=== PATIENT | female | born 1955 | race Hispanic/Latino ===

== ENCOUNTER 2017-11-26 05:49 | Emergency (ER) | payer BC, OTHER ==
[2017-11-26] MEDS ORDERED: HYDROcodone/Acetaminophen 5/325 mg Tablet ONE ×2 (06:13→06:51)
[2017-11-26] MEDS ORDERED: Ketorolac Tromethamine 60 MG/2 ML VIAL ONE (06:14)
--- NOTE | 2017-12-01 16:09 | EKG ---
Test Reason : Blood Pressure : / mmHG Vent. Rate : 074 BPM Atrial Rate : 074 BPM P-R Int : 150 ms QRS Dur : 088 ms QT Int : 400 ms P-R-T Axes : 039 -22 023 degrees QTc Int : 444 ms Normal sinus rhythm Cannot rule out Anterior infarct , age undetermined No STEMI Abnormal ECG Confirmed by ANA Urbano, JEREMIE ([id number]), food editor MARCELLE QUINTERO ([id number]) on 12/01/2017 4:09:11 PM Referred By: Confirmed By:JEREMIE PEREZ M.D.
== END 2017-11-26 06:55 | disposition home or self-care (01) ==
LOC: ERS 05:49
DX: H66.92 Otitis media, unspecified, left ear (principal); I10 Essential (primary) hypertension; F17.210 Nicotine dependence, cigarettes, uncomplicated; Z71.6 Tobacco abuse counseling
CPT/HCPCS: 93005; 96372; 99406; J1885

== ENCOUNTER 2017-12-25 16:08 | Outpatient (CLI) | payer BC | END 2017-12-25 16:09 | disposition home or self-care (01) | LOC: BICMAMMO 16:08 | PROVIDERS: ATTEND Family Medicine | DX: Z12.31 Encounter for screening mammogram for malignant neoplasm of breast (principal) | CPT/HCPCS: 77063; 77067 ==

== ENCOUNTER 2020-02-26 08:10 | Emergency (ER) | payer BC, OTHER ==
[2020-02-26] MEDS ORDERED: Ibuprofen 200 MG TAB ONE (08:50)
== END 2020-02-26 09:23 | disposition home or self-care (01) ==
LOC: ERS 08:10
DX: U07.1 COVID-19 (principal)
CPT/HCPCS: 99284

== ENCOUNTER 2020-02-28 04:00 | Emergency (ER) | payer BC, OTHER ==
[2020-02-28] MEDS ORDERED: Ibuprofen 800 MG TAB ONE (04:12)
[2020-02-28] MEDS ORDERED: Ondansetron ODT 8 MG TAB ONE (04:12)
--- NOTE | 2020-02-28 08:15 | RAD ---
PORTABLE CHEST 1 VIEW: Date: 02/28/2020 Time: 0351 hours HISTORY: Fever. Back pain. Vomiting. COVID-positive 6 days ago. COMPARISON: None. FINDINGS: The heart size is normal. The lungs are expanded without focal areas of consolidation, pneumothoraces , or pleural effusions. IMPRESSION: No acute process. POS: CECILIO
== END 2020-02-28 04:50 | disposition home or self-care (01) ==
LOC: ERS 04:00
DX: U07.1 COVID-19 (principal); R50.9 Fever, unspecified; E11.9 Type 2 diabetes mellitus without complications; Z87.891 Personal history of nicotine dependence
CPT/HCPCS: 36416; 71045; Q0162

== ENCOUNTER 2020-03-16 13:34 | Outpatient (CLI) | payer BC ==
--- NOTE | 2020-03-16 14:15 | BD ---
DEXA BONE DENSITOMETRY: (Dual energy x-ray absorptiometry) DATE: 03/16/2020 HISTORY: 64-year old female for age-related, post-menopausal, osteoporosis screening. weight: 151 lbs height: 62 in. Age of menopause: 44 COMPARISON: None available. FINDINGS: The bone mineral density (BMD) is given in grams per square centimeter (g/cm2): LUMBAR SPINE: BMD (g/cm^2) T score Z score L1: 0.724 -2.4 -0.8 L2: 0.802 -2.1 -0.3 L3: 0.731 -3.2 -1.4 L4: 0.723 -3.1 -1.2 Total: 0.743 -2.8 -1.0 HIP: BMD (g/cm^2) T score Z score Femoral neck: 0.652 -1.8 -0.4 Total: 0.878 -0.5 0.5 IMPRESSION: 1.) The mean bone mineral density of the lumbar spine is osteoporotic. Fracture risk is high. 2) The bone mineral density of the femoral neck is osteopenic. Fracture risk is increased.
--- NOTE | 2020-03-16 15:02 | MMO ---
Bilateral MAMMO Bilat Screen [facility]. CLINICAL HISTORY: Patient is 64 years old and is seen for screening. The patient has no family history of breast cancer. The patient has no personal history of cancer. VIEWS: The views performed were: bilateral craniocaudal with tomosynthesis and bilateral mediolateral oblique with tomosynthesis. FILMS COMPARED: The present examination has been compared to a prior imaging study performed at [facility] on 12/25/2017. This study has been interpreted with the assistance of computer-aided detection. MAMMOGRAM FINDINGS: The breasts are almost entirely fat. There are no suspicious masses, suspicious calcifications, or new areas of architectural distortion. IMPRESSION: THERE IS NO MAMMOGRAPHIC EVIDENCE OF MALIGNANCY. A ROUTINE FOLLOW-UP MAMMOGRAM IN 1 YEAR IS RECOMMENDED. THE RESULTS OF THIS EXAM WERE SENT TO THE PATIENT. ACR BI-RADS Category 1 - Negative MAMMOGRAPHY NOTE: 1. A negative mammogram report should not delay a biopsy if a dominant of clinically suspicious mass is present. 2. Approximately 10% to 15% of breast cancers are not detected by mammography. 3. Adenosis and dense breasts may obscure an underlying neoplasm. Reported by: KEILY HARVEY MD Electonically Signed: [id number]
== END 2020-03-16 13:35 | disposition home or self-care (01) ==
LOC: BICMAMMO 13:34
PROVIDERS: ATTEND Family Medicine
DX: Z12.31 Encounter for screening mammogram for malignant neoplasm of breast (principal); Z13.820 Encounter for screening for osteoporosis; Z78.0 Asymptomatic menopausal state; M81.0 Age-related osteoporosis without current pathological fracture; M85.859 Other specified disorders of bone density and structure, unspecified thigh
CPT/HCPCS: 77063; 77067; 77080

== ENCOUNTER 2020-06-21 07:39 | Outpatient (CLI) | payer BC, MEDICARE, OTHER ==
[2020-06-21 12:20] LABS: Hemoglobin 12.4 g/dL (12.0-16.0); Mean Corpuscular HGB CONC 33.1 G/DL (32.0-36.0); Mean Corpuscular Hemoglobin 30.6 PG (27.0-33.0); Mean Corpuscular Volume 92.6 fl (80.0-100.0); Platelet Count 195 10x3/uL (130-400); RBC Distribution Width 12.4 % (11.5-14.5); Red Blood Cell (RBC) Count 4.05 10x6/uL (3.90-5.20); White Blood Cell (WBC) Count 5.5 10x3/uL (4.5-11.0)
[2020-06-21 20:25] LABS: SARS-CoV-2 MS2 Positive; SARS-CoV-2 N Gene Negative; SARS-CoV-2 S Gene Negative; SARS-CoV-2 by NAA Not Detected (NotDetected); SARS-CoV-2 orf1ab Negative
== END 2020-06-21 07:40 | disposition home or self-care (01) ==
LOC: LABBT 07:39
PROVIDERS: ATTEND Obstetrics & Gynecology
DX: Z01.818 Encounter for other preprocedural examination (principal); Z20.828 Contact with and (suspected) exposure to other viral communicable diseases; N81.9 Female genital prolapse, unspecified
CPT/HCPCS: 85027; 86850; 86900; 86901; 87635; U0003

== ENCOUNTER 2020-06-26 06:08 | Day surgery (SDC) | payer BC, MEDICARE ==
--- NOTE | 2020-06-22 10:42 | HP ---
HISTORY OF PRESENT ILLNESS: Ms. Danielle Schwartz is a 64-year-old female, G5, P5, who is noted to have significant pelvic prolapse with total procidentia. She has been given a pessary trial with several different pessaries, which caused her pain despite different modifications. She is uncomfortable with the prolapse and is desiring surgical repair. PAST MEDICAL HISTORY: 1. Diabetes. 2. Hypertension. 3. Osteoporosis. PAST SURGICAL HISTORY: Tubal ligation. ALLERGIES: SHE HAS NO KNOWN DRUG ALLERGIES. CURRENT MEDICATIONS: 1. Atorvastatin 40 mg tablet daily. 2. Ibandronate 150 mg tablet monthly for osteoporosis. 3. Lisinopril 5 mg tablet daily. 4. Metformin 500 mg extended release tablet 2 tablets at bedtime. 5. She does [employer] insulin sliding scale. SOCIAL HISTORY: Nonsmoker. FAMILY HISTORY: Noncontributory. OBSTETRICAL HISTORY: Five vaginal deliveries. PRIMARY CARE PHYSICIAN: Dr. Zuniga. PHYSICAL EXAMINATION: VITAL SIGNS: Her height is 5 feet 1 inch, weight 153, BMI of 28.9, blood pressure 124/76, pulse 82, O2 saturation on room air 96%, and respiratory rate 18. HEENT: Within normal limits. CHEST: Clear to auscultation. HEART: Regular rate and rhythm. S1 and S2 heart sounds. No murmurs, rubs, or gallops. ABDOMEN: Soft, nontender, and nondistended. No palpable masses. PELVIC: No vulvar lesions noted. No vaginal lesions noted. She does have atrophic mucosa. She has total procidentia of the cervix coming past the opening of the vaginal introitus. Adnexa were nontender with no masses. ASSESSMENT: A 64-year-old female with total procidentia prolapse with inability to retain a pessary that is comfortable fit. PLAN: Plan is to proceed with robotic TLH-BSO with uterosacral vaginal vault suspension and anterior and posterior repair with Advantage Fit TVT and cystoscopy. Risks and benefits of procedure have been discussed in detail and she is set for surgery on 06/26. Job ID: [id number]
[2020-06-23 10:16] VITALS: BMI 27.8
[2020-06-26] MEDS ORDERED: CeleCOXIB 100 MG CAP ONE (06:34)
[2020-06-26] MEDS ORDERED: Famotidine/PF 20 mg/2ml Vial ONE (06:34)
[2020-06-26] MEDS ORDERED: Gabapentin 300 MG CAP ONE (06:34)
[2020-06-26] MEDS ORDERED: Bupivacaine PF 0.5% 30 ML VIAL ONE (06:48)
[2020-06-26] MEDS ORDERED: Lidocaine 1% w/Epinephrine 1:100K 20 ML VIAL ONE ×2 (06:48→10:11)
[2020-06-26] MEDS ORDERED: SUGAMMADEX SODIUM 200 MG/2 ML VIAL ONE (06:59)
[2020-06-26] MEDS ORDERED: Fentanyl 250 MCG/5 ML VIAL ONE (06:59)
[2020-06-26] MEDS ORDERED: Midazolam HCl 2 mg/2 ml Vial ONE (07:14)
[2020-06-26] MEDS ORDERED: Dexamethasone 20 MG/5 ML VIAL ONE (09:30)
[2020-06-26] MEDS ORDERED: EPHEDRINE 25 MG/5 ML SYRINGE ONE (09:30)
[2020-06-26] MEDS ORDERED: Glycopyrrolate 0.2 MG/ML 5 ML SYRINGE ONE (09:30)
[2020-06-26] MEDS ORDERED: Lidocaine 1% PF 5 ML VIAL ONE (09:30)
[2020-06-26] MEDS ORDERED: PHENYLEPHRINE-NS 100 MCG/ML 10 ML SYRINGE ONE (09:30)
[2020-06-26] MEDS ORDERED: PROPOFOL 200 MG/20 ML VIAL ONE (09:30)
[2020-06-26] MEDS ORDERED: Rocuronium Bromide 10 MG/ML (10ML VIAL) ONE (09:30)
[2020-06-26] MEDS ORDERED: Ondansetron PF 4 MG/2 ML Vial ONE (09:30)
[2020-06-26] MEDS ORDERED: Promethazine HCl 25 MG/ML VIAL SLOW IVP PRN (09:56)
[2020-06-26] MEDS ORDERED: Ondansetron HCl/PF 4 MG/2 ML Vial IVP PRN (09:56)
[2020-06-26] MEDS ORDERED: Promethazine HCl 25 MG/ML VIAL IM PRN ×2 (09:56→10:33)
[2020-06-26] MEDS ORDERED: Bisacodyl 10 MG SUPP PR PRN (10:33)
[2020-06-26] MEDS ORDERED: Morphine 4 MG/ML VIAL SLOW IVP PRN (10:33)
[2020-06-26] MEDS ORDERED: Ondansetron PF 4 MG/2 ML Vial IVP PRN (10:33)
[2020-06-26] MEDS ORDERED: Simethicone Chewable 80 MG TAB PO PRN (10:33)
[2020-06-26] MEDS ORDERED: Dextrose 50% Abboject 50 ML SYRINGE SLOW IVP PRN (10:33)
[2020-06-26] MEDS ORDERED: Dextrose 5% in Water 1,000 ML IV PRN (10:33)
[2020-06-26] MEDS ORDERED: diphenhydrAMINE 25 MG CAP PO PRN (10:33)
[2020-06-26] MEDS ORDERED: Zolpidem Tartrate 5 MG TAB PO PRN (10:33)
[2020-06-26] MEDS ORDERED: Morphine 2 MG/ML VIAL SLOW IVP PRN (10:33)
[2020-06-26] MEDS ORDERED: Fentanyl 100 MCG/2 ML VIAL ONE ×2 (11:04→11:24)
[2020-06-26] MEDS: Insulin Regular 300 UNITS/3 ML VIAL SC PRN ×2 (15:50→21:47)
[2020-06-26] MEDS: HYDROcodone/Acetaminophen 10/325 mg Tablet PO PRN (17:09)
[2020-06-26] MEDS ORDERED: metFORMIN 500 MG TAB PO SCH (21:00)
[2020-06-26] MEDS: traMADol HCl 50 MG TAB PO PRN (21:42)
[2020-06-26] MEDS: Lactated Ringer's 1,000 ML IV SCH (22:05)
[2020-06-27] MEDS: HYDROcodone/Acetaminophen 10/325 mg Tablet PO PRN ×4 (01:32→16:09)
[2020-06-27] MEDS: Lactated Ringer's 1,000 ML IV SCH ×2 (02:28→14:15)
[2020-06-27] MEDS: traMADol HCl 50 MG TAB PO PRN (04:07)
[2020-06-27 06:05] LABS: Hemoglobin 11.3 g/dL (12.0-16.0); Mean Corpuscular HGB CONC 34.7 g/dL (32.0-36.0); Mean Corpuscular Hemoglobin 32.4 pg (27.0-31.0); Mean Corpuscular Volume 93.2 fL (78.0-98.0); Mean Platelet Volume 8.6 fL (7.4-10.4); Platelet Count 162 thou/uL (130-400); RBC Distribution Width 11.8 % (11.5-14.5); White Blood Cell (WBC) Count 9.6 thou/uL (4.8-10.8)
--- NOTE | 2020-06-27 07:38 | PDOC.EVN ---
Event Note - Event Note Event Note: S: No nausea. Surgical pain minimal. Main complaint is left hip pain... O: VSS. HCT 32.6 ABD: soft/non distended. Trochar sites intact. Perineum dry. Talbot out. Left hip medial tenderness and pain with abduction. No severe pain with general palpation of femur. A/P:post op day 1 from robotic hyst/bso/a&p/tvt. surgically, progressing well. Left hip pain-will perform left hip x ray to rule out fracture...nsaids /pain meds. May be due to chronic osetoarthritis exacerbated by dorasal lithotomy position. Pending radiology findings-ortho consult.
[2020-06-27] MEDS ORDERED: CeleCOXIB 100 MG CAP PO PRN (07:40)
[2020-06-27] MEDS ORDERED: Atorvastatin Calcium 40 MG TAB PO SCH (09:00)
[2020-06-27] MEDS ORDERED: Lisinopril 5 MG TAB PO SCH (09:00)
[2020-06-27] MEDS ORDERED: Non-Formulary Item 1 EACH (Insulin Glargine,Hum.Rec.Anlog [Toujeo Solostar] 300 UNIT/ML I SC SCH (09:00)
[2020-06-27] MEDS ORDERED: Insulin Glargine 25 UNITS in Pre-Filled Syringe 1 EACH SC SCH (09:00)
--- NOTE | 2020-06-27 09:08 | OP ---
DATE OF PROCEDURE: 06/26/2020 PREOPERATIVE DIAGNOSES: 1. A 64-year-old [place] female with uterine procidentia, cystocele, rectocele. 2. Genuine stress incontinence. POSTOPERATIVE DIAGNOSES: 1. A 64-year-old [place] female with uterine procidentia, cystocele, rectocele. 2. Genuine stress incontinence. 3. Right inguinal hernia noted. PROCEDURES PERFORMED: 1. Robotic total laparoscopic hysterectomy with bilateral salpingo-oophorectomy. 2. Uterosacral vaginal vault suspension. 3. Anterior and posterior repair. 4. Advantage Fit TVT with cystoscopy. MEDICAL LAB ASSISTANT SURGEON: Tamia Jang PA-C ANESTHESIA: General endotracheal. ESTIMATED BLOOD LOSS: 50 mL. COMPLICATIONS: None. COUNTS: Correct x2. FINDINGS: 1. Normal postmenopausal bilateral tubes and ovaries. 2. Total uterine procidentia with the cervix initially passing approximately 4 cm past the vaginal wall opening. 3. Clear urine present in Talbot catheter postprocedure and postprocedure cystoscopy shows no evidence of trocar placement from the TVT within the bladder. Normal mucosal surfaces noted in the bladder. Bilateral ureteral orifice noted to have efflux of urine visualized. DISPOSITION: Recovery room, stable. DESCRIPTION OF PROCEDURE: The patient previously received informed consent in regard to surgery. She was taken back to the operating room, where she received a general endotracheal anesthetic agent without complications. She was placed in dorsal lithotomy position and prepped and draped in usual sterile fashion. Talbot catheter was placed. The cervix was noted to be prolapsing past the vaginal opening and was grasped with a tenaculum. The uterus sounded to 7 cm. A size 6 cm CHAKA uterine manipulator with a 4.0 cm cervical cup was placed. Tenaculum was removed. Attention was then turned to the abdomen where perspective trocar sites were infiltrated with 0.5% Marcaine with epinephrine. A 12-mm infraumbilical incision was made. Veress needle was entered into the peritoneal cavity with patient pressure less than 5 mm. Abdomen was insufflated for the patient pressure of 15 approximately 4.5 L of carbon dioxide gas. Veress needle was removed. A size 12 mm trocar was then placed. Laparoscope was introduced through the trocar sleeve confirming proper entry. The abdomen was inspected. Additional bilateral 8 mm trocars were placed under laparoscopic guidance and a right upper quadrant 11 mm public relations assistant port. There was photodocumentation present of the right inguinal hernia going through canal mainly contained fatty omental peritoneal tissues. The uterus was then elevated by my public relations assistant and put on stretch up cephalad, so we can see the insertion of the uterosacral ligaments and their courses. Bilateral ureters were noted to be very lateral to uterosacral ligaments. My public relations assistant brought in an 0 Ethibond suture and I tagged the left uterosacral ligament caudally from the uterus approximately 4 cm with double throw through uterosacral ligament. This was repeated on the patient's right uterosacral ligaments also and then they were dropped into the pelvis. We then proceeded to take the left IP ligament and coagulate it with bipolar fenestrated cautery. They were transected with monopolar scissors. Serial coagulation of the broad ligament hugging close to the specimen was carried down until the left round ligament was reached. It was coagulated and transected and then the vesicouterine peritoneal incision was made and dissected in layering technique. The vesicouterine peritoneum was very redundant due to the prolapse. We intermittently distended the bladder to ascertain its position to avoid any injury. Once the bladder was taken atraumatically past the cervical vaginal margin, we skeletonized the left utero-ovarian ligaments and coagulated them in the internal cervical os region. This was carried out in likewise fashion on the patient's right side. Again coagulating the right IP ligament, transecting it and then transecting the right round ligament after coagulation and completing the dissection of the bladder flap. Again, skeletonization of the uterine vessels at the internal cervical os were made and coagulated and transected. We then performed the colpotomy starting from 12 to 3 and 12 to 9, and completed it posteriorly from 6 to 3 and 6 to 9. The specimen was brought into the vaginal vault. The vaginal cuff was then cauterized of any areas of oozing with bipolar fenestrated cautery and my public relations assistant then brought in a Stratafix suture, which we closed the vaginal cuff in double layer closure starting from the right angle to the left angle back towards the right angle. The excess suture and needle were then removed through the right upper quadrant public relations assistant site. The 0 Ethibond sutures were then utilized first on the patient's left uterosacral ligament. The needle was driven through the vaginal cuff at the left angle and also the middle of the vaginal cuff with 3 throws and then it was tied with minimal give. This was then carried on the right uterosacral stitch, again throwing 3 throws through the vaginal cuff and tying with minimal give. The excess suture and needles were then removed through the right upper quadrant port. We irrigated all the pedicle sites and they were noted to be hemostatic. The bilateral ureters were seen in the pelvic sidewalls lateral and they were peristalsing well. We undocked the robot and then pulled out the trocar sleeves. I did a plynmr-sw-elytt stitch in the umbilical fascial defect. The rest of the trocar sites were closed with 4-0 Monocryl and then Dermabond. We then proceeded to carry out the vaginal portion of the case. The patient was repositioned to allow for vaginal surgery. A weighted speculum was placed in the vagina. The anterior vaginal mucosa was grasped laterally with 2 Allis clamps. I infiltrated the anterior vaginal mucosa and then we made a midline incision with Metzenbaum scissors about 2.5 cm from the urethral meatus over the cystocele. The edges of the vaginal mucosa were grasped with Allis clamps and then I dissected the cystocele both sharply and bluntly reducing the endopelvic fascial defect. We then kept the side of the vaginal mucosa grasped with 2 Allis clamps. I then marked the proposed TVT exit site just midline of the symphysis pubis and 2 cm lateral to the right and to the left. Two mcmanus were made. The retropubic space was hydrodissected with approximately 90 mL of sterile saline. We then grasped the vaginal mucosa over the mid urethra superiorly and inferiorly and about 1.5 cm incision was made after the mucosa had been infiltrated with 1% lidocaine with epinephrine. I then tunnelled submucosally of the vaginal mucosa bilaterally up to the junction of the symphysis and inferior pubic ramus just puncturing into the space of Retzius. We then assembled the Advantage Fit TVT trocar with the mesh and with the bladder guide being placed deviating the bladder towards the patient's right side, I placed the left TVT Advantage Fit trocar through the submucosal dissected tunnel and exited the exit site just 2 cm lateral around the pubic bones from the midline. Punctured through the skin and my public relations assistant grabbed the trailing sleeve of the mesh and I backed out the trocar. This was then repeated in likewise fashion. The bladder was deviated to the patient's left side this time. Trocar was then re-loaded and then it was placed in the submucosal tunnel into the premarked space 2 cm lateral from the midline of the symphysis and exited. My public relations assistant grabbed again the trailing sleeve and I backed the trocar out. We then removed the Talbot guide and I performed a cystoscopy. There was no evidence of any inadvertent penetration of the trocar through the bladder mucosa. The bladder was watertight. No mucosal lesions were seen. Bilateral UOs were identified with efflux of urine seen. We then pulled the mesh up on tautness with the use of a Lee scissor underneath the mid urethra and once we had the right amount of tension, we trimmed the mesh at the skin line in the suprapubic areas. The Lee scissor was then removed. I then closed the vaginal mucosa of the mid urethra with interrupted [id number]-dn-gdwzu stitches of 2-0 Vicryl. The Talbot catheter was reinserted. Clear urine was draining. We then completed the cystocele repair. The cystocele had been dissected. Next, we plicated out the endopelvic fascia, reapproximating the midline starting most cephalad and then working caudally with interrupted cjfztn-ek-xthaq mattress sutures of 2-0 Vicryl suture. The excess vaginal mucosa was then trimmed. Then, we closed the anterior vaginal mucosa with interrupted nwhfbj-kz-kpiux stitches incorporating some of the endopelvic fascia to rid the space. Hemostasis was confirmed. We then proceeded to the posterior repair. Two Allis clamps were placed at the 4 o'clock and 8 o'clock position of the vaginal introitus. The posterior vaginal mucosa was infiltrated with 1% lidocaine with epinephrine. A midline incision with Metzenbaum's was made at the vaginal introitus up to the cuff line. The edges of the vaginal mucosa were grasped each side with Allis clamps. Counter traction was given by my public relations assistant and I dissected the rectocele defect both sharply and bluntly. I then tagged the apex of the vaginal mucosal incision with a 2-0 Vicryl suture. The endopelvic fascia over the rectocele defect was then reapproximated with interrupted mattress suture starting most distally and then working out towards the introitus. Once the endopelvic fascia had been plicated on the midline and the rectocele was reduced, the excess mucosa was trimmed and then the vaginal mucosa was reapproximated with interrupted mbobri-fa-xinui stitches incorporating some of the endopelvic fascia to rid the space. Hemostasis was confirmed. We placed a moistened Kerlix in the vaginal vault after irrigation and then the patient was awakened from anesthesia, transferred to recovery room in stable condition. Job ID: [id number]
--- NOTE | 2020-06-27 09:19 | RAD ---
XR Femur Lt 2 View STANDARD INDICATION: Left hip pain after vaginal surgery COMPARISON: None. FINDINGS: Bones: No acute fracture or subluxation is demonstrated. Soft tissues: Soft tissues appear within normal limits Joints: There is mild left hip osteoarthrosis. There is mild left knee osteoarthrosis. IMPRESSION: No acute osseous abnormality.
[2020-06-27] MEDS: Insulin Regular 300 UNITS/3 ML VIAL SC PRN (12:42)
[2020-06-27 16:25] VITALS: BP 106/55; TEMP 98.3
--- NOTE | 2020-06-28 09:20 | DIS ---
DATE OF ADMISSION: 06/26/2020 DATE OF DISCHARGE: 06/27/2020 DATE OF SURGERY: 06/26/2020. DIAGNOSES: 1. Uterine procidentia. 2. Cystocele, rectocele. 3. Genuine stress incontinence. PROCEDURES PERFORMED: Robotic total laparoscopic hysterectomy and bilateral salpingo-oophorectomy with uterosacral vaginal vault suspension, A and P repair, Advantage Fit TVT with cystoscopy. SUMMARY OF HOSPITAL COURSE: Ms. Schwartz is a 64-year-old female with history of diabetes, who had worsening pelvic prolapse symptoms. She had several pessary trials and did not tolerate this well due to pain from the pessary. She underwent surgical repair on 06/26 with previously mentioned surgical procedures. Postoperatively, the patient's vital signs were stable. Hematocrit was appropriate at 32.6 on postop day #1. She had significant left hip pain after the surgery and a left hip x-ray series was performed, which showed no evidence of any fracture or subluxation. Mild osteoarthritis of the hip was noted. She was given Ancef, pain medicine, and heating pad, which did improve her symptoms and was then weightbearing at the time of discharge. She did have voiding trials on postop day #1 and had high postvoid residuals in the 500s. Talbot catheter was reinserted and she was discharged home with a Talbot in situ with plan for removal and check for postvoid residuals in my office on June 30. She has a prescription for [place] 7.5 mg q.6 hours p.r.n. pain. prescription for Celebrex b.i.d. for the hip pain. She has a followup in 2 and 6 weeks. Pathology is pending. Job ID: [id number]
== END 2020-06-27 18:00 | disposition home or self-care (01) ==
LOC: SDC 06:08 → 3SE 10:33 → SDC 06-27 18:00
PROVIDERS: ATTEND Obstetrics & Gynecology
PROC: 0WQNXZZ Repair Female Perineum, External Approach (ICD-10-PCS; principal; 2020-06-26)
PROC: 0USG7ZZ Reposition Vagina, Via Natural or Artificial Opening (ICD-10-PCS; principal; 2020-06-26)
PROC: 0TSD0ZZ Reposition Urethra, Open Approach (ICD-10-PCS; principal; 2020-06-26)
PROC: 0JQC0ZZ Repair Pelvic Region Subcutaneous Tissue and Fascia, Open Approach (ICD-10-PCS; principal; 2020-06-26)
PROC: 0UT94ZZ Resection of Uterus, Percutaneous Endoscopic Approach (ICD-10-PCS; principal; 2020-06-26)
PROC: 0UT74ZZ Resection of Bilateral Fallopian Tubes, Percutaneous Endoscopic Approach (ICD-10-PCS; principal; 2020-06-26)
PROC: 0UT24ZZ Resection of Bilateral Ovaries, Percutaneous Endoscopic Approach (ICD-10-PCS; principal; 2020-06-26)
DX: N88.8 Other specified noninflammatory disorders of cervix uteri (principal); N81.3 Complete uterovaginal prolapse; N39.3 Stress incontinence (female) (male); K44.9 Diaphragmatic hernia without obstruction or gangrene; E11.9 Type 2 diabetes mellitus without complications; I10 Essential (primary) hypertension; M81.0 Age-related osteoporosis without current pathological fracture; M25.552 Pain in left hip; Z79.4 Long term (current) use of insulin; Z79.899 Other long term (current) drug therapy
CPT/HCPCS: 36415; 36416; 85027; 86850; 86900; 86901; 88305; C1781; J0690; J1100; J1815; J2250; J2270; J2405; J2704; J3010; S0020; S0028

== ENCOUNTER 2020-07-14 08:46 | Outpatient (CLI) | payer BC, MEDICARE ==
--- NOTE | 2020-07-14 09:48 | MRI ---
EXAM: Left hip MRI Without contrast: HISTORY: Left hip pain COMPARISON: None FINDINGS: Multiplanar, multisequence MRI examination of the hip is performed. There is noted to be a fatty "mass" in the right lower anterior abdominal wall measuring 4.5 x 7.9 cm probably some type of fatty hernia although it is incompletely seen on this study and incompletely evaluated. No evidence for abnormal marrow signal to suggest avascular necrosis, fracture, or acute stress injur y. Gluteus medius and gluteus minimus muscle tendon insertions:Unremarkable. Common hamstring tendon insertion:Unremarkable. Acetabular hip labrum:Minimal labral blunting evidence for some degeneration. Trochanteric bursa region:Unremarkable. Muscles and mild tenderness regions:Minimal edema within the teres minor muscle, nonspecific possibly related to some muscle strain. Superficial soft tissues:Unremarkable. Soft tissue pelvis: Unremarkable. IMPRESSION: Intramuscular edema within the teres minor muscle, possibly strain. Evidence for probable right lower abdomen or upper inguinal fat-containing hernia incompletely evalua maurice on this study.
== END 2020-07-14 08:47 | disposition home or self-care (01) ==
LOC: MRI 08:46
PROVIDERS: ATTEND Orthopaedic Surgery
DX: M25.552 Pain in left hip (principal)

== ENCOUNTER 2022-10-10 14:27 | Outpatient (CLI) | payer BC, MEDICARE | END 2022-10-10 14:28 | disposition home or self-care (01) | LOC: BICRAD 14:27 | PROVIDERS: ATTEND Family Medicine | DX: M54.50 Low back pain, unspecified (principal); M53.3 Sacrococcygeal disorders, not elsewhere classified; M47.816 Spondylosis without myelopathy or radiculopathy, lumbar region | CPT/HCPCS: 72100; 72220 ==

== ENCOUNTER 2022-12-03 09:41 | Outpatient (CLI) | payer MEDICARE | END 2022-12-03 09:42 | disposition home or self-care (01) | LOC: BICMAMMO 09:41 | PROVIDERS: ATTEND Family Medicine | DX: Z12.31 Encounter for screening mammogram for malignant neoplasm of breast (principal) | CPT/HCPCS: 77063; 77067 ==

== ENCOUNTER 2022-12-26 09:29 | Outpatient (CLI) | payer MEDICARE | END 2022-12-26 09:30 | disposition home or self-care (01) | LOC: BICMRI 09:29 | PROVIDERS: ATTEND Family Medicine | DX: M53.3 Sacrococcygeal disorders, not elsewhere classified (principal); M43.17 Spondylolisthesis, lumbosacral region; M47.815 Spondylosis without myelopathy or radiculopathy, thoracolumbar region; M47.816 Spondylosis without myelopathy or radiculopathy, lumbar region; M25.78 Osteophyte, vertebrae; M51.36 Other intervertebral disc degeneration, lumbar region; M48.062 Spinal stenosis, lumbar region with neurogenic claudication; K80.20 Calculus of gallbladder without cholecystitis without obstruction | CPT/HCPCS: 72148 ==

== ENCOUNTER 2023-06-17 19:45 | Emergency (ER) | payer MEDICARE ==
[2023-06-17] MEDS ORDERED: Ketorolac Tromethamine 30 MG/ML VIAL ONE (21:05)
[2023-06-17 21:55] LABS: Bacteria/HPF 3+ HPF (None Seen); Bilirubin Negative (Negative); Blood, Urine Trace (Negative); CAUTI Indications for Culture Pelvic or flank pain; Clarity Clear (Clear); Glucose, Urine (Dipstick) Normal (Negative); Ketone, Urine Negative (Negative); Leukocyte Negative Leu/uL (Negative); Nitrite 1+ (Negative); Protein, Urine (Dipstick) Negative (Neg-Trace); RBC/HPF 0-3 HPF (0-3); Specific Gravity, Urine 1.006 (1.002-1.036); Squamous Epithelial 0-3 HPF (0-3); Urobilinogen Normal mg/dL (Less than 2); WBC/HPF 0-3 HPF (0-3)
[2023-06-17] MEDS ORDERED: Cyclobenzaprine 10 MG TAB ONE (21:56)
[2023-06-17 22:00] LABS: Urine Culture Reflex No No
[2023-06-17] MEDS ORDERED: Lidocaine 4% Patch TD SCH (22:30)
[2023-06-18] MEDS ORDERED: Transdermal Patch Removal TOP SCH (10:30)
== END 2023-06-17 23:15 | disposition home or self-care (01) ==
LOC: ERS 19:45
DX: M25.551 Pain in right hip (principal); E78.5 Hyperlipidemia, unspecified; E11.9 Type 2 diabetes mellitus without complications; I10 Essential (primary) hypertension; F17.210 Nicotine dependence, cigarettes, uncomplicated; Z79.899 Other long term (current) drug therapy
CPT/HCPCS: 81001; 96372; J1885

== ENCOUNTER 2024-01-02 14:35 | Outpatient (CLI) | payer MEDICARE | END 2024-01-02 14:36 | disposition home or self-care (01) | LOC: BICMAMMO 14:35 | PROVIDERS: ATTEND Family Medicine | DX: Z12.31 Encounter for screening mammogram for malignant neoplasm of breast (principal); Z80.3 Family history of malignant neoplasm of breast | CPT/HCPCS: 77063; 77067 ==